=== PATIENT | female | born 1950 | race Caucasian/White ===

== ENCOUNTER 2019-10-25 09:49 | Outpatient (CLI) | payer OTHER, SELFPAY ==
[2019-10-25 10:32] LABS: Basophils Absolute Auto 0.1 K/mm3 (0.0-0.1); Eosinophils Absolute Auto 0.2 K/mm3 (0-0.3); Eosinophils Percent Auto 3.3 % (0-4.4); Hematocrit 41.5 % (37.0-47.0); Hemoglobin 13.7 g/dL (12.0-15.0); Immature Granulocyte Absolute 0.02 K/mm3 (0.00-0.031); Immature Granulocyte Percent A 0.3 % (0-0.5); Lymphocytes Absolute Auto 1.62 K/mm3 (0.9-3.2); Lymphocytes Percent Auto 26.3 % (18.3-44.2); Mean Corpuscular Hemoglobin 29.8 pg (26-34); Mean Corpuscular Volume 90.4 fl (80-100); Mean Platelet Volume 11.4 fl (7.4-10.4); Monocytes Absolute Auto 0.6 K/mm3 (0.1-0.6); Monocytes Percent Auto 8.9 % (2.6-8.5); Neutrophils Absolute Auto 3.7 K/mm3 (1.3-6.7); Neutrophils Percent Auto 60.2 % (45.5-73.1); Platelet Count Result 166 k/mm3 (150-375); Red Blood Count 4.59 M/mm3 (4.2-5.4); Red Cell Distribution Width 12.5 % (11.5-14.5); White Blood Count 6.2 K/mm3 (4.5-10.0)
[2019-10-25 10:50] LABS: Alanine Aminotransferase 22 U/L (4-35); Albumin Level 4.2 g/dL (3.5-5.1); Alkaline Phosphatase 58 U/L (38-126); Aspartate Amino Transferase 26 U/L (14-36); Bilirubin,Total 0.3 mg/dL (0.2-1.3); Blood Urea Nitrogen 15 mg/dL (7-17); Calcium 9.1 mg/dL (8.4-10.2); Carbon Dioxide 28 mmol/L (22-30); Chloride 99 mmol/L (98-107); Cholesterol 179 mg/dL (0-200); Estimated Glomerular Filt Rate > 60; Glucose 91 mg/dL (65-105); HDL Direct 43 mg/dL; Magnesium 2.3 mg/dL (1.6-2.3); Potassium 4.4 mmol/L (3.4-5.0); Sodium 134 mmol/L (137-145); Triglycerides 65 mg/dL (<150)
[2019-10-25 10:57] LABS: Hemoglobin A1C 5.8 % (<5.7)
[2019-10-25 11:01] LABS: LDL Cholesterol Direct 116 mg/dL
== END 2019-10-25 09:50 | disposition home or self-care (01) ==
PROVIDERS: PCP Family Medicine; Visit Provider Family Medicine
DX: Z00.00 Encounter for general adult medical examination without abnormal findings (principal); R73.03 Prediabetes
CPT/HCPCS: 36415; 80053; 80061; 83036; 83735; 85025

== ENCOUNTER 2019-11-08 01:01 | Day surgery (SDC) | payer OTHER, SELFPAY ==
[2019-11-04 13:34] VITALS: BMI 26.4
[2019-11-08 07:21] VITALS: BP 128/84; PULSE 70; RESP 16; TEMP 36.7; O2SAT 97
[2019-11-08 07:24] VITALS: BMI 27.4
[2019-11-08] MEDS: LACTATED RINGERS 1,000 ML 150 ML IV CONT (07:27)
--- NOTE | 2019-11-08 07:40 | WPDANESEPPF ---
Anes - Initial Pre Proc Eval Procedure: Operation Date: 11/08/19 08:00 Proposed Procedures p Screening Colonoscopy - Stef Bradford MD Date/Time: 11/08/19 07:40 Surgeon: Stef Bradford MD Pre Op Diagnosis: Neoplasm Screening Patient Data Age: 69 Gender: F Height: 5 ft 4 in Weight: 72.6 kg Last Vital Signs Temp 98.0 F 11/08/19 07:21 Pulse 70 11/08/19 07:21 Resp 16 11/08/19 07:21 BP 128/84 11/08/19 07:21 Pulse Ox 97 11/08/19 07:21 Allergies Allergy/AdvReac Type Severity Reaction Status Date / Time No Known Allergies Allergy Mild Verified 11/08/19 06:55 Home Medications Medication Instructions Recorded Confirmed Type amlodipine 5 mg-benazepril 20 mg 1 cap PO DAILY #90 cap 10/26/19 11/08/19 Rx capsule calcium carbonate [Calcium 500] 500 mg PO DAILY 11/04/19 11/08/19 History cholecalciferol (vitamin D3) 10 mcg PO DAILY 11/04/19 11/08/19 History [Vitamin D3] cinnamon bark [Cinnamon] 500 mg PO DAILY 11/04/19 11/08/19 History glucos sul [id number]-cgp-[id number]-C-Mn 1 cap PO DAILY 11/04/19 11/08/19 History [Glucosamine Chondroitin] magnesium 200 mg PO DAILY 11/04/19 11/08/19 History multivit,Ca,qldh-XO-zoncto-lut 1 tablet PO DAILY 11/04/19 11/08/19 History [Complete Multi] omeprazole 20 mg PO DAILY 11/04/19 11/08/19 History potassium chloride 10 meq PO DAILY 11/04/19 11/08/19 History vitamin E 1,000 unit PO DAILY 11/04/19 11/08/19 History Patient hx anesthesia problems: none Family hx anesthesia problems: none PMFSH Past Medical History Medical History (Updated 11/08/19 @ 07:40 by Ravinder Sy MD) Essential hypertension Gastro-esophageal reflux disease with esophagitis Social History Social History Smoking status: Never smoker Alcohol intake: current Anes - Eval Final PreProcedure Day of Procedure 11/08/19 07:40 Patient weight: normal Heart: regular rate and rhythm Lungs: clear to auscultation Airway: Mallampati scale class II Neurological: alert and oriented Last oral intake: >/= 8 hours ASA classification: II Emergent: no Anesthetic plan: proceed Anesthesia type and monitoring: general GIVS and standard monitoring Informed Consent: The patient's anesthetic plan and its attendant risks and benefits were discussed with the patient/family/POA. Questions were solicited and answers provided to the satisfaction of the patient/family/POA.
--- NOTE | 2019-11-08 08:17 | WPDGICN ---
Assessment and Plan Additional Plan This is a 69-year-old white female patient seen in evaluation at the request Dr. Dioni Washburn. Patient is referred for neoplasia screening. Her current weight appetite bowel movements are normal. She denies any blood in her stools. She denies abdominal pain. Family history is significant her mother had stomach cancer. Past medical history patient has been treated for GE reflux disease. She has also been treated for hypertension. Current medications include omeprazole, zolpidem, potassium, Naprosyn, She has no known drug allergies. Physical exam reveals her to be alert. Oriented x3. HEENT exam unremarkable. She is anicteric. Lungs are clear to auscultation and percussion. Heart is without murmur or extra sounds. Abdominal exam bowel sounds are present soft nontender with no hepatosplenomegaly. Digital external rectal exam normal. Impression 1. Neoplasia screening. Plan is for screening exam now on a 10 year intervals. Plan is to proceed with colonoscopy as stated. GI Consult Note Consult date/time: 11/08/19 08:17 HPI: Lena Tipton is a 69 year old female ON LICENSE OF [facility] Past Medical History Medical History (Updated 11/08/19 @ 07:40 by Ravinder Sy MD) Essential hypertension Gastro-esophageal reflux disease with esophagitis Social History Social History Smoking status: Never smoker Alcohol intake: current Meds Home Medications and Allergies Home Medications Medication Instructions Recorded Confirmed Type amlodipine 5 mg-benazepril 20 mg 1 cap PO DAILY #90 cap 10/26/19 11/08/19 Rx capsule calcium carbonate [Calcium 500] 500 mg PO DAILY 11/04/19 11/08/19 History cholecalciferol (vitamin D3) 10 mcg PO DAILY 11/04/19 11/08/19 History [Vitamin D3] cinnamon bark [Cinnamon] 500 mg PO DAILY 11/04/19 11/08/19 History glucos sul [id number]-vgazp-C-Mn 1 cap PO DAILY 11/04/19 11/08/19 History [Glucosamine Chondroitin] magnesium 200 mg PO DAILY 11/04/19 11/08/19 History multivit,Ca,xyzj-VB-lqrtao-lut 1 tablet PO DAILY 11/04/19 11/08/19 History [Complete Multi] omeprazole 20 mg PO DAILY 11/04/19 11/08/19 History potassium chloride 10 meq PO DAILY 11/04/19 11/08/19 History vitamin E 1,000 unit PO DAILY 11/04/19 11/08/19 History Allergies Allergy/AdvReac Type Severity Reaction Status Date / Time No Known Allergies Allergy Mild Verified 11/08/19 06:55 Vital Signs Vital Signs - 24 hr 11/08/19 07:21 Temperature 36.7 C Pulse Rate 70 Respiratory Rate 16 Blood Pressure 128/84 Pulse Oximetry 97
[2019-11-08 08:44] VITALS: BP 106/67; PULSE 74; RESP 18; O2SAT 99
[2019-11-08 08:54] VITALS: BP 121/77; PULSE 63; RESP 17; O2SAT 98
[2019-11-08 09:04] VITALS: BP 123/75; PULSE 65; RESP 14; O2SAT 100
== END 2019-11-08 09:18 | disposition home or self-care (01) ==
PROVIDERS: PCP Family Medicine; Visit Provider Internal Medicine Gastroenterology
PROC: 0DJD8ZZ Inspection of Lower Intestinal Tract, Via Natural or Artificial Opening Endoscopic (ICD-10-PCS; CPT 45378; principal; 2019-11-08 08:00)
DX: Z12.11 Encounter for screening for malignant neoplasm of colon (principal); K62.1 Rectal polyp; K64.8 Other hemorrhoids; K21.9 Gastro-esophageal reflux disease without esophagitis; I10 Essential (primary) hypertension; Z80.0 Family history of malignant neoplasm of digestive organs
CPT/HCPCS: 45385; 88305; J2704; J7120

== ENCOUNTER 2020-06-28 06:56 | Outpatient (NON) | payer OTHER, SELFPAY ==
[2020-06-28 16:38] LABS: SARS-CoV-2 RNA PCR Negative
== END 2020-06-28 06:57 ==
PROVIDERS: PCP Physician Assistant; Visit Provider Family Medicine
DX: Z20.828 Contact with and (suspected) exposure to other viral communicable diseases (principal)
CPT/HCPCS: 87635; C9803; U0003

== ENCOUNTER 2020-07-23 08:05 | Outpatient (CLI) | payer OTHER, SELFPAY ==
--- NOTE | ~2020-07-23 | MM_ITS ---
EXAMINATION: MM screening lux BI w shabana HISTORY: Screening TECHNIQUE: Craniocaudal and mediolateral oblique 3-D tomosynthesis images were obtained and synthetic 2-D images were generated. CAD analysis was submitted and interpreted. COMPARISON: Comparison to multiple prior studies sequentially, with oldest reviewed study dated 02/10. BREAST PARENCHYMAL COMPOSITION: The breasts are heterogeneously dense, which may obscure small masses . FINDINGS: Bilateral breast asymmetries are stable. There is no evidence of suspicious mass, calcifica tion, or architectural distortion to suggest malignancy in either breast. There has been no suspiciou s interval change. IMPRESSION: 1. No mammographic evidence of malignancy. 2. Recommend routine screening mammography in one year. BI-RADS Category 2: Benign finding(s). Reviewed, dictated and finalized at location A. [employer] HELPER
== END 2020-07-23 08:06 | disposition home or self-care (01) ==
PROVIDERS: PCP Family Medicine; Visit Provider Family Medicine
DX: Z12.31 Encounter for screening mammogram for malignant neoplasm of breast (principal)
CPT/HCPCS: 77063; 77067

== ENCOUNTER 2020-12-04 06:39 | Outpatient (CLI) | payer OTHER, SELFPAY ==
[2020-12-04 07:44] LABS: Basophils Absolute Auto 0.1 K/mm3 (0.0-0.1); Basophils Percent Auto 1.2 % (0.2-1.2); Eosinophils Absolute Auto 0.3 K/mm3 (0-0.3); Eosinophils Percent Auto 4.3 % (0-4.4); Hematocrit 41.3 % (37.0-47.0); Hemoglobin 13.6 g/dL (12.0-15.0); Immature Granulocyte Absolute 0.01 K/mm3 (0.00-0.031); Immature Granulocyte Percent A 0.2 % (0-0.5); Lymphocytes Absolute Auto 1.69 K/mm3 (0.9-3.2); Lymphocytes Percent Auto 29.3 % (18.3-44.2); Mean Corpuscular HGB Conc 32.9 g/dl (32-36); Mean Corpuscular Hemoglobin 28.5 pg (26-34); Mean Corpuscular Volume 86.6 fl (80-100); Mean Platelet Volume 11.6 fl (7.4-10.4); Monocytes Absolute Auto 0.6 K/mm3 (0.1-0.6); Monocytes Percent Auto 10.7 % (2.6-8.5); Neutrophils Absolute Auto 3.1 K/mm3 (1.3-6.7); Neutrophils Percent Auto 54.3 % (45.5-73.1); Platelet Count Result 241 k/mm3 (150-375); Red Blood Count 4.77 M/mm3 (4.2-5.4); Red Cell Distribution Width 12.9 % (11.5-14.5); White Blood Count 5.8 K/mm3 (4.5-10.0)
[2020-12-04 08:36] LABS: Vitamin D 25 Hydroxy 68.6 ng/mL
[2020-12-04 08:53] LABS: Alanine Aminotransferase 22 U/L (4-35); Albumin Level 4.1 g/dL (3.5-5.1); Alkaline Phosphatase 50 U/L (38-126); Anion Gap 5 mmol/L (8-16); Aspartate Amino Transferase 26 U/L (14-36); Bilirubin,Total 0.2 mg/dL (0.2-1.3); Blood Urea Nitrogen 27 mg/dL (7-17); Calcium 9.3 mg/dL (8.4-10.2); Carbon Dioxide 29 mmol/L (22-30); Chloride 101 mmol/L (98-107); Cholesterol 215 mg/dL (0-200); Estimated Glomerular Filt Rate > 60; Glucose 100 mg/dL (65-105); HDL Direct 51 mg/dL; Potassium 4.3 mmol/L (3.4-5.0); Sodium 135 mmol/L (137-145); Triglycerides 40 mg/dL (<150)
[2020-12-04 09:08] LABS: Hepatitis C Virus Antibody Negative (Negative); LDL Cholesterol Direct 124 mg/dL
[2020-12-04 09:14] LABS: Hemoglobin A1C 5.5 % (<5.7)
== END 2020-12-04 06:40 | disposition home or self-care (01) ==
PROVIDERS: PCP Family Medicine; Visit Provider Family Medicine
DX: E78.2 Mixed hyperlipidemia (principal); K21.9 Gastro-esophageal reflux disease without esophagitis; R73.03 Prediabetes; Z11.59 Encounter for screening for other viral diseases; Z79.899 Other long term (current) drug therapy
CPT/HCPCS: 36415; 80053; 80061; 82306; 82607; 83036; 85025; 86803

== ENCOUNTER 2020-12-11 13:55 | Outpatient (CLI) | payer OTHER, SELFPAY ==
--- NOTE | ~2020-12-11 | XR_ITS ---
XR hip BI wo pelvis DATE: 12/11/2020 14:21 INDICATION: Bilateral hip pain. No injury. TECHNIQUE: AP, lateral and crosstable lateral views of each hip COMPARISON: None FINDINGS: The pubic symphysis and sacroiliac joints are intact. There is mild degenerative change at the sacroiliac joints. No fracture, dislocation, avascular necrosis or bone destruction of either hip is evident. Hip joint spaces are symmetric and well preserved. IMPRESSION: No significant abnormality of the hips Reviewed, dictated and finalized at location B.
== END 2020-12-11 13:56 | disposition home or self-care (01) ==
LOC: ANHIMG 14:02
PROVIDERS: PCP Family Medicine; Visit Provider Chiropractor
DX: M25.551 Pain in right hip (principal); M25.552 Pain in left hip
CPT/HCPCS: 73521

== ENCOUNTER 2021-06-03 07:27 | Outpatient (CLI) | payer MEDICARE, SELFPAY ==
[2021-06-03 08:09] LABS: Alanine Aminotransferase 22 U/L (4-35); Albumin Level 4.1 g/dL (3.5-5.1); Alkaline Phosphatase 60 U/L (38-126); Anion Gap 8 mmol/L (8-16); Aspartate Amino Transferase 40 U/L (14-36); Bilirubin,Total 0.4 mg/dL (0.2-1.3); Blood Urea Nitrogen 19 mg/dL (7-17); Calcium 9.1 mg/dL (8.4-10.2); Carbon Dioxide 29 mmol/L (22-30); Chloride 101 mmol/L (98-107); Cholesterol 174 mg/dL (0-200); Estimated Glomerular Filt Rate > 60; Glucose 98 mg/dL (65-110); HDL Direct 50 mg/dL; Potassium 4.3 mmol/L (3.4-5.0); Sodium 138 mmol/L (137-145); Triglycerides 60 mg/dL (<150)
[2021-06-03 08:21] LABS: LDL Cholesterol Direct 94 mg/dL
== END 2021-06-03 07:28 | disposition home or self-care (01) ==
PROVIDERS: PCP Family Medicine; Visit Provider Family Medicine
DX: E78.2 Mixed hyperlipidemia (principal)
CPT/HCPCS: 36415; 80053; 80061

== ENCOUNTER 2021-07-15 09:43 | Outpatient (CLI) | payer MEDICARE, SELFPAY ==
[2021-07-15 10:28] LABS: Alanine Aminotransferase 25 U/L (4-35); Albumin Level 4.2 g/dL (3.5-5.1); Alkaline Phosphatase 61 U/L (38-126); Aspartate Amino Transferase 29 U/L (14-36); Bilirubin,Total 0.4 mg/dL (0.2-1.3)
== END 2021-07-15 09:44 | disposition home or self-care (01) ==
LOC: ANHLAB 09:47
PROVIDERS: PCP Family Medicine; Visit Provider Physician Assistant
DX: R74.8 Abnormal levels of other serum enzymes (principal)
CPT/HCPCS: 36415; 80076

== ENCOUNTER → 2021-10-07 00:37 | Outpatient (CLI) | payer MEDICARE, SELFPAY ==
[2021-10-08 08:05] LABS: SARS-CoV-2 RNA PCR Negative
== END ==
PROVIDERS: PCP Family Medicine; Visit Provider Family Medicine
DX: R68.89 Other general symptoms and signs (principal); Z20.822 Contact with and (suspected) exposure to COVID-19
CPT/HCPCS: C9803; U0003; U0005

== ENCOUNTER 2021-11-07 07:13 | Outpatient (CLI) | payer MEDICARE, SELFPAY ==
--- NOTE | ~2021-11-07 | MM_ITS ---
EXAMINATION: MM screening lux BI w shabana HISTORY: Screening TECHNIQUE: Craniocaudal and mediolateral oblique 3-D tomosynthesis images were obtained and synthetic 2-D images were generated. CAD analysis was submitted and interpreted. COMPARISON: Comparison to multiple prior studies sequentially, with oldest reviewed study dated 02/2012. BREAST PARENCHYMAL COMPOSITION: There are scattered areas of fibroglandular density. FINDINGS: Bilateral breast asymmetries are stable. There is no evidence of suspicious mass, calcifica tion, or architectural distortion to suggest malignancy in either breast. There has been no suspiciou s interval change. IMPRESSION: 1. No mammographic evidence of malignancy. 2. Recommend routine screening mammography in one year. BI-RADS Category 1: Negative Reviewed, dictated and finalized at location A. [employer]ING MACHINE OPERATOR
== END 2021-11-07 07:14 | disposition home or self-care (01) ==
LOC: ANHIMG 07:16
PROVIDERS: PCP Family Medicine; Visit Provider Family Medicine
DX: Z12.31 Encounter for screening mammogram for malignant neoplasm of breast (principal)
CPT/HCPCS: 77063; 77067

== ENCOUNTER 2022-01-16 08:36 | Outpatient (CLI) | payer MEDICARE, SELFPAY ==
[2022-01-16 09:00] LABS: Basophils Absolute Auto 0.1 K/mm3 (0.0-0.1); Basophils Percent Auto 1.1 % (0.2-1.2); Eosinophils Absolute Auto 0.2 K/mm3 (0-0.3); Eosinophils Percent Auto 3.8 % (0-4.4); Hematocrit 42.7 % (37.0-47.0); Hemoglobin 14.1 g/dL (12.0-15.0); Immature Granulocyte Absolute 0.02 K/mm3 (0.00-0.031); Immature Granulocyte Percent A 0.4 % (0-0.5); Lymphocytes Absolute Auto 1.32 K/mm3 (0.9-3.2); Lymphocytes Percent Auto 24.8 % (18.3-44.2); Mean Corpuscular Hemoglobin 30.3 pg (26-34); Mean Corpuscular Volume 91.6 fl (80-100); Mean Platelet Volume 11.9 fl (7.4-10.4); Monocytes Absolute Auto 0.6 K/mm3 (0.1-0.6); Monocytes Percent Auto 11.3 % (2.6-8.5); Neutrophils Absolute Auto 3.1 K/mm3 (1.3-6.7); Neutrophils Percent Auto 58.6 % (45.5-73.1); Platelet Count Result 175 k/mm3 (150-375); Red Blood Count 4.66 M/mm3 (4.2-5.4); Red Cell Distribution Width 12.6 % (11.5-14.5); White Blood Count 5.3 K/mm3 (4.5-10.0)
[2022-01-16 09:13] LABS: Alanine Aminotransferase 25 U/L (4-35); Albumin Level 4.2 g/dL (3.5-5.1); Alkaline Phosphatase 56 U/L (38-126); Anion Gap 5 mmol/L (8-16); Aspartate Amino Transferase 28 U/L (14-36); Bilirubin,Total 0.3 mg/dL (0.2-1.3); Blood Urea Nitrogen 22 mg/dL (7-17); Calcium 8.8 mg/dL (8.4-10.2); Carbon Dioxide 29 mmol/L (22-30); Chloride 102 mmol/L (98-107); Cholesterol 201 mg/dL (0-200); Estimated Glomerular Filt Rate > 60; Glucose 101 mg/dL (65-110); HDL Direct 47 mg/dL; Magnesium 2.3 mg/dL (1.6-2.3); Potassium 4.2 mmol/L (3.4-5.0); Sodium 136 mmol/L (137-145); Triglycerides 55 mg/dL (<150)
[2022-01-16 09:24] LABS: LDL Cholesterol Direct 112 mg/dL
[2022-01-16 09:50] LABS: Hemoglobin A1C 5.6 % (<5.7)
[2022-01-16 10:19] LABS: Folic Acid > 20.0 ng/mL (2.76->20)
== END 2022-01-16 08:37 | disposition home or self-care (01) ==
LOC: ANHLAB 08:44
PROVIDERS: PCP Family Medicine; Visit Provider Physician Assistant Medical
DX: E78.5 Hyperlipidemia, unspecified (principal); F51.04 Psychophysiologic insomnia; E78.2 Mixed hyperlipidemia; R73.03 Prediabetes; K21.00 Gastro-esophageal reflux disease with esophagitis, without bleeding; G89.4 Chronic pain syndrome
CPT/HCPCS: 36415; 80053; 80061; 82607; 82746; 83036; 83735; 84443; 85025

== ENCOUNTER 2022-03-10 13:12 | Outpatient (CLI) | payer MEDICARE, SELFPAY ==
--- NOTE | ~2022-03-10 | XR_ITS ---
XR finger 5th LT min 2V DATE: 03/10/2022 13:41 INDICATION: Swelling and possible mass at proximal interphalangeal joint of fifth digit TECHNIQUE: 4 views COMPARISON: 05/10/2010 left hand FINDINGS: There is osteoarthritis at the triscaphe joint and mild osteophyte is at the first carpomet acarpal joint. There is mild osteoarthritis at the distal interphalangeal joint of the fifth digit. There is focal soft tissue swelling at the lateral aspect of the proximal interphalangeal joint of th e fifth digit. No fracture or dislocation, periosteal reaction or bone destruction of the fifth digit is noted. No radiopaque soft tissue foreign body or subcutaneous emphysema is noted. IMPRESSION: Soft tissue swelling in the region of the PIP joint of the fifth digit; no radiopaque sof t tissue foreign body or subcutaneous emphysema No fracture or dislocation Polyarticular osteoarthritis Reviewed, dictated and finalized at location A. IMPRESSION: Soft tissue swelling in the region of the PIP joint of the fifth di git; no radiopaque soft tissue foreign body or subcutaneous emphysema No fracture or dislocation Polyarticular osteoarthritis
== END 2022-03-10 13:13 | disposition home or self-care (01) ==
PROVIDERS: PCP Family Medicine; Visit Provider Family Medicine
DX: R22.30 Localized swelling, mass and lump, unspecified upper limb (principal); M79.89 Other specified soft tissue disorders; M19.042 Primary osteoarthritis, left hand
CPT/HCPCS: 73140

== ENCOUNTER 2022-04-24 16:02 | Outpatient (CLI) | payer MEDICARE, SELFPAY ==
[2022-04-24 16:51] LABS: Basophils Absolute Auto 0.1 K/mm3 (0.0-0.1); Eosinophils Absolute Auto 0.3 K/mm3 (0-0.3); Eosinophils Percent Auto 3.4 % (0-4.4); Hematocrit 42.1 % (37.0-47.0); Hemoglobin 13.8 g/dL (12.0-15.0); Immature Granulocyte Absolute 0.02 K/mm3 (0.00-0.031); Immature Granulocyte Percent A 0.3 % (0-0.5); Lymphocytes Absolute Auto 1.51 K/mm3 (0.9-3.2); Lymphocytes Percent Auto 20.8 % (18.3-44.2); Mean Corpuscular HGB Conc 32.8 g/dl (32-36); Mean Corpuscular Hemoglobin 30.3 pg (26-34); Mean Corpuscular Volume 92.3 fl (80-100); Mean Platelet Volume 11.1 fl (7.4-10.4); Monocytes Absolute Auto 0.8 K/mm3 (0.1-0.6); Monocytes Percent Auto 10.5 % (2.6-8.5); Neutrophils Absolute Auto 4.6 K/mm3 (1.3-6.7); Platelet Count Result 274 k/mm3 (150-375); Red Blood Count 4.56 M/mm3 (4.2-5.4); Red Cell Distribution Width 12.6 % (11.5-14.5); White Blood Count 7.3 K/mm3 (4.5-10.0)
[2022-04-24 16:59] LABS: Prothrombin Time 13.1 Seconds (11.1-14.7)
[2022-04-24 17:00] LABS: Partial Thromboplastin Time 26.3 SECONDS (22.3-36.8)
[2022-04-24 17:05] LABS: Alanine Aminotransferase 23 U/L (6-35); Albumin Level 4.4 g/dL (3.5-5.1); Alkaline Phosphatase 57 U/L (38-126); Anion Gap 11 mmol/L (8-16); Aspartate Amino Transferase 27 U/L (14-36); Bilirubin,Total 0.3 mg/dL (0.2-1.3); Blood Urea Nitrogen 21 mg/dL (7-17); Calcium 8.9 mg/dL (8.4-10.2); Carbon Dioxide 27 mmol/L (22-30); Chloride 99 mmol/L (98-107); Estimated Glomerular Filt Rate > 60; Glucose 108 mg/dL (65-110); Sodium 137 mmol/L (137-145)
== END 2022-04-24 16:03 | disposition home or self-care (01) ==
LOC: ANHLAB 16:06
PROVIDERS: PCP Family Medicine; Visit Provider Family Medicine
DX: R23.3 Spontaneous ecchymoses (principal)
CPT/HCPCS: 36415; 80053; 85025; 85610; 85730